=== PATIENT | male | born 1965 | race Caucasian/White ===

== ENCOUNTER 2021-05-11 12:37 | Emergency (ER) | payer MEDICARE ==
[~2021-05-11] VITALS: Ht 177.8 cm; Wt 86.2 kg
[2021-05-11] MEDS ORDERED: IBUPROFEN 600 MG TAB PO STA (13:03)
[2021-05-11] MEDS ORDERED: IBUPROFEN600 MG PO (13:09)
[2021-05-11] MEDS ORDERED: LIDOCAINE1 EAC1 TD (13:09)
[2021-05-11] MEDS ORDERED: CYCLOBENZAPRINE10 MG PO (13:09)
== END 2021-05-11 14:20 | disposition home or self-care (01) ==
LOC: ER 12:45
DX: S16.1XXA Strain of muscle, fascia and tendon at neck level, initial encounter (principal); Y04.2XXA Assault by strike against or bumped into by another person, initial encounter
CPT/HCPCS: 99284